=== PATIENT | female | born 1985 | race Caucasian/White ===

== ENCOUNTER 2017-11-11 14:47 | Emergency (ER) | payer OTHER ==
[2017-11-11 15:10] VITALS: BP 110/70; PULSE 76; RESP 16; TEMP 98.9; O2SAT 99
--- NOTE | 2017-11-11 15:51 | ED PDOC ---
Upper Extremity Pain/Injury Time Seen by Provider: 11/11/17 15:22 Chief Complaint (Nursing): Finger,Hand,&Wrist Chief Complaint (Provider): drainage from nail fold History Per: Patient History/Exam Limitations: no limitations Onset/Duration Of Symptoms: Days Current Symptoms Are (Timing): Better Additional Complaint(s): 32 yo female with no medical problems presents for evaluation of drainage from right middle finger nail fold yesterday. Pt states that she had pain and drainged puss from the area. Pt reports improvement in pain and swelling. Pt states she is having some pain in the index finger and was concerned infection spread. No fever/chills. Eating and drinking normally. Past Medical History Reviewed: Historical Data, Nursing Documentation, Vital Signs Vital Signs: Last Vital Signs Temp 98.9 F 11/11/17 15:08 Pulse 76 11/11/17 15:08 Resp 16 11/11/17 15:08 BP 110/70 11/11/17 15:08 Pulse Ox 99 11/11/17 15:08 - Medical History PMH: No Chronic Diseases - Surgical History Surgical History: No Surg Hx - Family History Family History: States: No Known Family Hx - Living Arrangements Living Arrangements: With Family - Social History Current smoker - smoking cessation education provided: No - Home Medications Home Medications: Ambulatory Orders Medication Instructions Recorded Cephalexin [Keflex] 500 mg PO BID #14 capsule 11/11/17 - Allergies Allergies/Adverse Reactions: Allergies Allergy/AdvReac Type Severity Reaction Status Date / Time No Known Allergies Allergy Verified 11/11/17 15:08 Review of Systems ROS Statement: Except As Marked, All Systems Reviewed And Found Negative Skin: Positive for: Other Physical Exam - Reviewed Nursing Documentation Reviewed: Yes Vital Signs Reviewed: Yes - Physical Exam Appears: Positive for: Well, Non-toxic, No Acute Distress Head Exam: Positive for: ATRAUMATIC, NORMAL INSPECTION, NORMOCEPHALIC Skin: Positive for: Warm. Negative for: Normal Color (Mild ertyehma of the lateral nail fold, right middle finger, no abscess formation) Eye Exam: Positive for: Normal appearance ENT: Positive for: Normal ENT Inspection Neck: Positive for: Normal Cardiovascular/Chest: Negative for: Bradycardia, Tachycardia Respiratory: Negative for: Accessory Muscle Use, Respiratory Distress Back: Positive for: Normal Inspection Extremity: Positive for: Normal ROM, Capillary Refill. Negative for: Tenderness , Swelling Neurologic/Psych: Positive for: Alert, Oriented - ECG O2 Sat by Pulse Oximetry: 99 Disposition - Clinical Impression Clinical Impression: Paronychia - Disposition Disposition: Routine/Home Disposition Time: 15:49 Condition: GOOD Prescriptions: Cephalexin [Keflex] 500 mg PO BID #14 capsule Instructions: Paronychia (DC)
== END 2017-11-11 16:08 | disposition home or self-care (01) ==
LOC: H.ER 14:47
DX: L03.011 Cellulitis of right finger (principal)